=== PATIENT | female | born 1995 | race Hispanic/Latino ===

== ENCOUNTER 2019-08-26 08:45 | Emergency (ER) | payer OTHER ==
[~2019-08-26] VITALS: Ht 157.5 cm; Wt 90.7 kg
[2019-08-26 10:43] VITALS: BP 112/62
--- NOTE | 2019-08-26 10:48 | Diagnostic Imaging Report ---
Exam: Right knee radiographs-3 views History: Fall. Comparison: None. Findings: No evidence of acute fracture, malalignment, or soft tissue abnormality. Impression: No acute radiographic abnormality. Signed by: Dr. Lex Travis MD on 08/26/2019 10:45 AM
== END 2019-08-26 10:50 | disposition home or self-care (01) ==
LOC: FSED 08:45
DX: S83.521A Sprain of posterior cruciate ligament of right knee, initial encounter (principal); W01.0XXA Fall on same level from slipping, tripping and stumbling without subsequent striking against object, initial encounter; Y92.008 Other place in unspecified non-institutional (private) residence as the place of occurrence of the external cause
CPT/HCPCS: 99284